=== PATIENT | female | born 1955 | race Caucasian/White ===

== ENCOUNTER 2019-06-17 10:04 | Day surgery (SDC) | payer MEDICARE, OTHER ==
[~2019-06-17 10:04] MED LIST: DESFLURANE 15 MIN
[2019-06-17 11:15] LABS: ADD MAN DIFF? NO; BASOPHILS % 0.4 % (0.0-2.0); EOSINOPHILS # 0.1 10^3/ul (0.0-0.5); EOSINOPHILS % 1.1 % (0.0-7.0); HEMATOCRIT 39.3 % (37.0-47.0); HEMOGLOBIN 13.3 g/dl (12.0-16.0); LYMPHOCYTES # 1.9 10^3/ul (0.8-2.9); MEAN CORPUSCULAR HEMOGLOBIN 30.8 pg (29.0-33.0); MEAN CORPUSCULAR HGB CONC 33.8 g/dl (32.0-37.0); MEAN PLATELET VOLUME 11.5 fl (7.4-10.4); MONOCYTE # 0.3 10^3/ul (0.3-0.9); MONOCYTES % 6.7 % (0.0-11.0); NEUTROPHIL # 2.2 10^3/ul (1.6-7.5); NEUTROPHILS % 49.6 % (39.0-77.0); PLATELET COUNT 208 10^3/UL (140-415); RED BLOOD COUNT 4.32 10^6/ul (4.20-5.40); RED CELL DISTRIBUTION WIDTH 13.1 % (11.5-14.5)
[2019-06-17 11:15] LABS: WHITE BLOOD COUNT 4.5 10^3/ul (4.8-10.8)
[2019-06-17] MEDS: LACTATED RINGER'S 1,000 ML IV (11:20)
[2019-06-17 11:37] LABS: ALANINE AMINOTRANSFERASE 38 IU/L (13-69); ALBUMIN 4.2 g/dl (3.3-4.9); ALKALINE PHOSPHATASE 65 IU/L (42-121); ANION GAP 8 (5-13); ASPARTATE AMINO TRANSFERASE 41 IU/L (15-46); BILIRUBIN,INDIRECT 0.8 mg/dl (0-1.1); BILIRUBIN,TOTAL 0.8 mg/dl (0.2-1.3); BLOOD UREA NITROGEN 17 mg/dl (7-20); CALCIUM 9.4 mg/dl (8.4-10.2); CARBON DIOXIDE 27 mmol/L (21-31); CHLORIDE 109 mmol/L (97-110); CREATININE 0.63 mg/dl (0.44-1.00); Estimated GFR > 60 mL/min (>60); GLUCOSE 104 mg/dl (70-220); POTASSIUM 4.3 mmol/L (3.5-5.1); SODIUM 144 mmol/L (135-144); TOTAL PROTEIN 7.2 g/dl (6.1-8.1)
[2019-06-17] MEDS ORDERED: ONDANSETRON 4 MG INJ ×2 (13:05→15:06)
[2019-06-17] MEDS ORDERED: FENTAnyl 50 MCG/ML VIAL ×2 (13:05→15:06)
[2019-06-17] MEDS ORDERED: ROCURONIUM 50 MG INJ (13:05)
[2019-06-17] MEDS ORDERED: MIDAZOLAM 1 MG/ML 2 ML INJ (13:05)
[2019-06-17] MEDS ORDERED: CEFAZOLIN 1 GM INJ (13:05)
[2019-06-17] MEDS ORDERED: PROPOFOL 20 ML (13:05)
[2019-06-17] MEDS ORDERED: NEOSTIGMINE 3 MG/3 ML SYRINGE (13:05)
[2019-06-17] MEDS ORDERED: DEXAMETHASONE 4 MG/ML 5 ML INJ (13:05)
[2019-06-17] MEDS ORDERED: GLYCOPYRROLATE 0.4 MG INJ (13:05)
[2019-06-17] MEDS: ONDANSETRON 4 MG INJ IV (15:12)
[2019-06-17] MEDS: FENTAnyl 50 MCG/ML VIAL IV (15:13)
[2019-06-17] MEDS ORDERED: HYDROmorphONE 1 MG/5 ML IV SYRINGE IV ×2 (15:30)
[2019-06-17] MEDS ORDERED: FENTAnyl 50 MCG/ML VIAL IV (15:30)
== END 2019-06-17 16:33 | disposition home or self-care (01) ==
LOC: SDS 10:04
DX: N85.8 Other specified noninflammatory disorders of uterus (principal); N95.0 Postmenopausal bleeding
CPT/HCPCS: 58563; 71045; 80053; 85025; 86850; 86900; 86901; 88305; 93005